=== PATIENT | male | born 2000 | race Caucasian/White ===

== ENCOUNTER 2018-02-11 21:19 | Emergency (ER) | payer SELFPAY ==
[~2018-02-11] VITALS: Ht 180.3 cm; Wt 83.5 kg
[2018-02-11 21:27] VITALS: BP 136/68
--- NOTE | 2018-02-11 21:27 | NUR ---
TO BED # 11 AMBULATORY, REPORT GIVEN TO CHUY SOLIZ
[2018-02-11] MEDS ORDERED: KETOROLAC 60 MG/2 ML VIAL IM ONE (21:40)
--- NOTE | 2018-02-11 21:45 | NUR ---
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 PT ALSO C/O 4/10 THROBBING R LOWER BACK PAIN, X1 WEEK. PT REPORTS INTERMITTENT SOB. PT WENT TO CLINIC TODAY FOR LOWER BACK PAIN, AND WAS TOLD TO GO TO ER AFTER C/O CHEST PAIN WELL. AOX4, GCS 15, AMBULATORY, RR EVEN AND UNLABORED. LUNG SOUNDS CLEAR BL. DENIES PMH OR RX.
[2018-02-11 23:00] VITALS: BP 117/81
== END 2018-02-11 23:00 | disposition home or self-care (01) ==
LOC: MED 21:19
DX: R07.89 Other chest pain (principal); M54.5 Low back pain
CPT/HCPCS: 93005; 96372; 99283; J1885